=== PATIENT | female | born 1985 | race Caucasian/White ===

== ENCOUNTER 2021-07-21 22:55 | Emergency (ER) | payer MEDICARE, MEDICAID ==
[~2021-07-21] VITALS: Ht 170.2 cm; Wt 49.0 kg
[2021-07-22 01:39] LABS: BASOPHILS % 0.8 % (0.0-2.0); EOSINOPHILS % 0.8 % (0.0-5.0); HEMATOCRIT. 37.4 % (36.0-48.0); LYMPHOCYTES % 22.5 % (20.0-50.0); MEAN CORPUSCULAR HEMOGLOBIN 29.9 pg (28.0-32.0); MEAN CORPUSCULAR VOLUME 86.4 fL (81.0-99.0); MEAN PLATELET VOLUME 8.2 fl (7.4-10.4); MONOCYTES % 11.7 % (2.0-8.0); NEUTROPHILS % 64.2 % (40.0-76.0); PLATELET 167 x1000/uL (130-400); RED BLOOD CELL COUNT 4.33 mill/uL (4.2-5.4); RED CELL DISTRIBUTION WIDTH 12.8 % (11.6-14.6)
[2021-07-22 01:51] LABS: CHLORIDE 108 mEq/L (98-107); HCG SCREEN NEGATIVE
[2021-07-22 01:58] LABS: ETHANOL BLOOD < 10 mg/dL
[2021-07-22 02:29] LABS: *AMPHETAMINES SCREEN URINE NEGATIVE (NEGATIVE); *BARBITURATES SCREEN URINE NEGATIVE (NEGATIVE); *BENZODIAZEPINES SCREEN URINE NEGATIVE (NEGATIVE); *COCAINE SCREEN URINE NEGATIVE (NEGATIVE); CANNABINOID URINE SCREEN NEGATIVE (NEGATIVE); METHADONE URINE SCREEN NEGATIVE (NEGATIVE); OPIATES URINE SCREEN NEGATIVE (NEGATIVE); PHENCYCLIDINE URINE SCREEN NEGATIVE (NEGATIVE)
[2021-07-22 10:00] VITALS: BP 105/67
== END 2021-07-22 11:08 | disposition home or self-care (01) ==
LOC: ER 22:55
DX: R44.0 Auditory hallucinations (principal); G80.9 Cerebral palsy, unspecified
CPT/HCPCS: 36415; 80048; 80076; 80305; 80307; 80320; 80329; 84703; 85025; 99285; G0480